=== PATIENT | male | born 1980 | race Caucasian/White ===

== ENCOUNTER 2019-11-27 09:35 | Emergency (ER) | payer BC, OTHER ==
[2019-11-27 09:39] VITALS: TEMP 98.5
[2019-11-27] MEDS ORDERED: LIDOCAINE 1% INJ 10MG/ML (20 ML MDV) SQ ONE (10:04)
[2019-11-27] MEDS ORDERED: ACET/COD 300 MG/30 MG STARTER PACK 6 TAB BTL PO STA (10:04)
[2019-11-27] MEDS ORDERED: PENICILLIN VK 500MG STARTER 4 TAB BTL PO STA (10:04)
[2019-11-27] MEDS ORDERED: HYDROcodone/APAP 5-325MG 1 EACH TAB PO STA (10:21)
[2019-11-27] MEDS ORDERED: MAG HYDROX/AL HYDROX/SIMETH 30 ML, HYOSCYAMINE ELIXIR 10 ML, LIDOCAINE VISCOUS 2% 10 ML PO STA ×3 (10:33)
--- NOTE | 2019-11-27 10:46 | ED ---
General Adult HPI - General Chief complaint: Dental/Oral Stated complaint: dental pain Source: patient, RN notes reviewed Mode of arrival: ambulatory - History of Present Illness Initial comments: 39-year-old male presents to the emergency department for a chief complaint of dental pain. Patient states he has a large bump in his mouth. Patient reports that it has been there for about 2 days now. Patient states it is painful. Patient has a history of dental abscesses. Patient denies fevers or chills. Denies sublingual edema. Denies trismus or neck stiffness. Denies fevers or chills.Patient has no other complaints at this time including shortness of breath, chest pain, abdominal pain, nausea or vomiting, headache, or visual changes. - Related Data Previous Rx's Medication Instructions Recorded Albuterol Inhaler (Mhu) [Ventolin 1 - 2 puff INHALATION Q6HR PRN #1 07/19/15 Inhaler] inhaler Penicillin V Potassium [Pen Vee K] 500 mg PO Q6H 10 Days #40 tablet 11/27/19 Allergies Allergy/AdvReac Type Severity Reaction Status Date / Time No Known Allergies Allergy Verified 07/19/15 11:45 Review of Systems ROS Statement: Those systems with pertinent positive or pertinent negative responses have been documented in the HPI. ROS Other: All systems not noted in ROS Statement are negative. Past Medical History Past Medical History: No Reported History History of Any Multi-Drug Resistant Organisms: None Reported Additional Past Surgical History / Comment(s): ears Past Psychological History: No Psychological Hx Reported Smoking Status: Current every day smoker Past Alcohol Use History: None Reported Past Drug Use History: Marijuana General Exam General appearance: alert, in no apparent distress Head exam: Present: atraumatic, normocephalic, normal inspection Eye exam: Present: normal appearance, PERRL, EOMI. Absent: scleral icterus, conjunctival injection, periorbital swelling ENT exam: Present: other (Poor dentition). Absent: normal oropharynx (Patient has a large 3 cm x 3 cm abscess noted to the medial to the right upper quadrant.) Neck exam: Present: normal inspection, full ROM. Absent: tenderness, meningismus, lymphadenopathy Respiratory exam: Present: normal lung sounds bilaterally. Absent: respiratory distress, wheezes, rales, rhonchi, stridor Cardiovascular Exam: Present: regular rate, normal rhythm, normal heart sounds. Absent: systolic murmur, diastolic murmur, rubs, gallop, clicks GI/Abdominal exam: Present: soft, normal bowel sounds. Absent: distended, tenderness, guarding, rebound, rigid Neurological exam: Present: alert Psychiatric exam: Present: normal affect, normal mood Course Vital Signs 11/27/19 11/27/19 09:36 11:03 Temperature 98.5 F Pulse Rate 63 66 Respiratory 16 18 Rate Blood Pressure 131/73 127/84 O2 Sat by Pulse 97 97 Oximetry Procedures - Incision & Drainage Consent Obtained: verbal consent Site: oral Scalpel Used: #11 Needle Aspiration Performed?: Yes I&D Drainage Obtained: Pus Medical Decision Making - Medical Decision Making Patient has a large 3 cm abscess noted to the medial aspect of the upper teeth. 18-gauge needle was initially used to drain the area. About 3 mL was expelled. An 11-gauge was then used to incise the area and more purulent material expelled. Patient does not have any drooling trismus or difficulty handling saliva. No shortness of breath. No sublingual edema. No facial swelling. He is well-appearing. Patient did have an episode of epigastric pain and revealed he had taken 16 Motrin and 9 Aleve in the past day. We did give him GI cocktail which completely alleviated his pain. He will be given Tylenol 3 for home. Will return here for any worsening symptoms. Dental referral given. Disposition Clinical Impression: Dental abscess Disposition: HOME SELF-CARE Condition: Good Instructions (If sedation given, give patient instructions): Dental Abscess (ED) Additional Instructions: Please take antibiotic as directed. Follow up with dentist as soon as possible. Take Tylenol 3 for pain but do not drive or operate machinery while taking this. Return to the emergency room for any worsening symptoms. [facility] [address] [address] (existing clients only) New clients: [phone] 1st consult: $50 (includes XRs) Usually 30% less than private dentist for visits after. [employer] [facility] [employer] Have to pay $50 for Xrays and rest is covered [phone] Prescriptions: Penicillin V Potassium [Pen Vee K] 500 mg PO Q6H 10 Days #40 tablet Is patient prescribed a controlled substance at d/c from ED?: No Referrals: Jose Costa MD [REFERRING] - 1-2 days Time of Disposition: 11:10
[2019-11-27 11:06] VITALS: BP 127/84; PULSE 66; RESP 18
== END 2019-11-27 11:21 | disposition home or self-care (01) ==
LOC: EC 09:35
DX: K04.7 Periapical abscess without sinus (principal); F17.200 Nicotine dependence, unspecified, uncomplicated
CPT/HCPCS: 41800; 99282; J2001